=== PATIENT | female | born 1950 | race Caucasian/White ===

== ENCOUNTER → 2016-08-01 | Outpatient (CLI) | payer MEDICARE, OTHER ==
--- NOTE | 2016-08-01 15:12 | RAD ---
Metastatic skeletal survey, 08/01/2016: History: Multiple myeloma in remission Multiple images of the bony skeleton were obtained and compared to an exam from 07/13/2015. The following findings are delineated: 1. An AP view of the chest reveals no lytic bone lesions. The heart size is normal. The lungs are clear. 2. A lateral view of the skull shows no abnormality. 3. AP and lateral views of the spine demonstrate vertebral compression fractures with vertebroplasty change at T7 and T9. No new vertebral fracture is seen. There are scattered marginal spurs. There are moderate degenerative changes involving the facet joints in the lower lumbar spine. 4. An AP view of the pelvis reveals no fracture or destructive bony lesion. 5. AP views of both femurs and lower legs reveal no lytic lesions. 6. AP views of both humeri and forearms reveal no lytic lesions. IMPRESSION: 1. Old T7 and T9 vertebral compression fractures with vertebroplasty change. 2. Stable metastatic survey without evidence of new lytic bone lesions.
== END | disposition home or self-care (01) ==
LOC: RAD 13:51
PROVIDERS: ATTEND Internal Medicine Hematology & Oncology
DX: C90.01 Multiple myeloma in remission (principal); M47.896 Other spondylosis, lumbar region; M48.54XD Collapsed vertebra, not elsewhere classified, thoracic region, subsequent encounter for fracture with routine healing
CPT/HCPCS: 77075

== ENCOUNTER → 2017-07-09 | Outpatient (CLI) | payer MEDICARE, OTHER | END | disposition home or self-care (01) | LOC: RAD 13:50 | DX: C90.01 Multiple myeloma in remission (principal); M48.54XA Collapsed vertebra, not elsewhere classified, thoracic region, initial encounter for fracture | CPT/HCPCS: 77075 ==